=== PATIENT | female | born 1980 | race African-American/Black ===

== ENCOUNTER 2018-09-04 11:44 | Emergency (ER) | payer OTHER ==
[2018-09-04 11:53] VITALS: BP 136/80
[2018-09-04] MEDS ORDERED: Al Hydrox/Mg Hydrox/Simet LIQ* 30 ML UDC PO ONE (14:01)
[2018-09-04] MEDS ORDERED: Lidocaine 2% VISCOUS* 15 ML UDC PO ONE (14:01)
--- NOTE | 2018-09-04 16:39 | ED ---
Complex/Multi-Sys Presentation - HPI Summary HPI Summary: Patient is a 38-year-old female who presents emergency department with numerous complaints. Patient's main complaint is a feeling of a foreign body in her throat 2 weeks. Patient does not believe she has a food bolus. She is able to swallow solids and liquids but feels discomfort. She also notes vomiting that started yesterday and diffuse abdominal pain. She denies past medical history. States she has acid reflux while but has not been treated since. Symptoms are moderate in severity. No current modifying factors. - History Of Current Complaint Chief Complaint: EDGeneral Time Seen by Provider: 09/04/18 13:34 Hx Obtained From: Patient - Allergies/Home Medications Allergies/Adverse Reactions: Allergies Allergy/AdvReac Type Severity Reaction Status Date / Time No Known Allergies Allergy Verified 09/04/18 11:53 PMH/Surg Hx/FS Hx/Imm Hx Previously Healthy: Yes Endocrine/Hematology History: Denies: Hx Diabetes, Hx Thyroid Disease Cardiovascular History: Denies: Hx Hypertension Respiratory History: Denies: Hx Asthma, Hx Chronic Obstructive Pulmonary Disease (COPD) GI History: Denies: Hx Ulcer - Surgical History Surgery Procedure, Year, and Place: 2008. Infectious Disease History: No Infectious Disease History: Denies: Hx Hepatitis, Hx Human Immunodeficiency Virus (HIV), Traveled Outside the [place] in Last 30 Days - Family History Known Family History: Positive: Non-Contributory - Social History Occupation: Unemployed Lives: With Family Alcohol Use: Rare Substance Use Type: Reports: None Smoking Status (MU): Never Smoked Tobacco Review of Systems Constitutional: Negative Negative: Fever, Chills ENT: Negative Positive: Other - foreign body sensation in esophagus Cardiovascular: Negative Respiratory: Negative Positive: Abdominal Pain, Vomiting, Nausea. Negative: Diarrhea Genitourinary: Negative Neurological: Negative All Other Systems Reviewed And Are Negative: Yes Physical Exam Triage Information Reviewed: Yes Vital Signs On Initial Exam: Initial Vitals Temp Pulse Resp BP Pulse Ox 98.5 F 92 20 136/80 99 09/04/18 11:48 09/04/18 11:48 09/04/18 11:48 09/04/18 11:48 09/04/18 11:48 Vital Signs Reviewed: Yes Appearance: Positive: Well-Appearing - Patient sitting on bed in no acute distress. present. Skin: Positive: Warm, Dry Head/Face: Positive: Normal Head/Face Inspection Eyes: Positive: Normal, EOMI, Conjunctiva Clear Neck: Positive: Supple Respiratory/Lung Sounds: Positive: Clear to Auscultation, Breath Sounds Present Cardiovascular: Positive: Normal, RRR Abdomen Description: Positive: Other: - Marked tenderness in all quadrants. No rebound tenderness or guarding Musculoskeletal: Positive: Normal, Strength/ROM Intact Neurological: Positive: Normal, CN Intact II-III Psychiatric: Positive: Affect/Mood Appropriate Diagnostics - Vital Signs Vital Signs Temp Pulse Resp BP Pulse Ox 09/04/18 11:48 98.5 F 92 20 136/80 99 - Laboratory Lab Statement: Any lab studies that have been ordered have been reviewed, and results considered in the medical decision making process. Complex Multi-Symp Course/Dx Course Of Treatment: Patient presenting with complaints of foreign body sensation to her esophagus 2 weeks as well as abdominal pain and vomiting. Suspect her symptoms are possibly secondary to acid reflux. On exam she has marked abd. tenderness. Discussed with patient obtaining bloodwork and further examination. Patient's states they always have a hard time getting her blood and refuses lab work at this time. 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 Patient given a GI cocktail. Patient eloped from the ER before reevaluation and further evaluation. I had previously recommended the patient will ultimately need to see her family doctor for further workup of dysphagia. - Diagnoses Provider Diagnoses: Dysphagia, Vomiting, Abdominal pain Discharge - Sign-Out/Discharge Documenting (check all that apply): Patient Departure - Discharge Plan Condition: Good Disposition: ELOPEMENT Referrals: Lenny Falcon MD [Primary Care Provider] - - Billing Disposition and Condition Condition: GOOD Disposition: Elopement
== END 2018-09-04 14:25 | disposition home or self-care (01) ==
LOC: ED 11:44
DX: R13.10 Dysphagia, unspecified (principal); R11.2 Nausea with vomiting, unspecified; R10.9 Unspecified abdominal pain
CPT/HCPCS: 99282; A9270-GY

== ENCOUNTER 2019-09-11 19:09 | Emergency (ER) | payer OTHER ==
--- OUTSIDE RECORDS SUMMARY | 2019-09-11 19:14 | XMS REPORT | Continuity of Care Document ---
:1980 External Reference #:[id number] Author Name Alcides Edward, OD Address [address] [place] [address] Problems Description No Information Available Social History Type Date Description Comments Sex Unknown ETOH Use Occasionally consumes alcohol Tobacco Use Start: Unknown Patient has never smoked Smoking Status Reviewed: 07/16/19 Patient has never smoked Allergies, Adverse Reactions, Alerts Description No Known Drug Allergies Medications Description No Active Medications Immunizations Description No Information Available Vital Signs Date Vital Result Comment 07/16/2019 11:08am Intraocular Pressure Right Eye 18 mmHg Intraocular Pressure Left Eye 20 mmHg Results Description No Information Available Procedures Date Code Description Status 07/16/2019 49936 Oct Retina Completed 07/16/2019 19600 Refraction Completed 07/16/2019 47781 Eye Exam New Comprehensive Completed Medical Devices Description No Information Available Encounters Description No Information Available Assessments Date Code Description Provider 07/16/2019 H52.4 Presbyopia Alcides Edward, OD 07/16/2019 H35.372 Puckering of macula, left eye Alcides Edward, CHIDI Plan of Treatment 07/16/2019 - Alcides Edward, ODH52.4 PresbyopiaFollow up:yearly full, sooner PRNH35.372 Puckering of macula, left eyeFollow up:yearly full, sooner PRN Functional Status Description No Information Available Mental Status Description No Information Available Referrals Description No Information Available
[2019-09-11 19:43] VITALS: BP 127/80
[2019-09-11] MEDS ORDERED: Acetaminophen TAB* 325 MG PO ONE (19:46)
[2019-09-11 20:00] LABS: Influenza B Molecular POSITIVE (Negative)
[2019-09-11] MEDS ORDERED: Oseltamivir CAP* 75 MG CAP PO ONE ×2 (20:32)
--- NOTE | 2019-09-11 20:38 | UC ---
Respiratory Complaint HPI - HPI Summary HPI Summary: The patient is a 39-year-old female with the onset yesterday of fever chills or myalgias and cough. She denies any nausea vomiting or diarrhea. She denies any chest pain or shortness of breath. - History of Current Complaint Chief Complaint: UCGeneralIllness Stated Complaint: CHILLS Time Seen by Provider: 09/11/19 20:28 Hx Obtained From: Patient Hx Last Menstrual Period: <1 week ago Onset/Duration: Gradual Onset, Lasting Hours Timing: Constant Severity Initially: Mild Severity Currently: Severe Pain Intensity: 9 Pain Scale Used: 0-10 Numeric Character: Cough: Nonproductive Aggravating Factors: Nothing Alleviating Factors: Nothing Associated Signs And Symptoms: Positive: Fever, Nasal Congestion, Sinus Discomfort - Allergies/Home Medications Allergies/Adverse Reactions: Allergies Allergy/AdvReac Type Severity Reaction Status Date / Time No Known Allergies Allergy Verified 09/11/19 19:43 PMH/Surg Hx/FS Hx/Imm Hx Previously Healthy: Yes - Surgical History Surgical History: Yes Surgery Procedure, Year, and Place: 2008. - Family History Known Family History: Positive: Non-Contributory - Social History Alcohol Use: Occasionally Substance Use Type: None Smoking Status (MU): Never Smoked Tobacco - Immunization History Most Recent Influenza Vaccination: 05/28/14 Most Recent Tetanus Shot: unknown Most Recent Pneumonia Vaccination: none Review of Systems All Other Systems Reviewed And Are Negative: Yes Constitutional: Positive: Fever, Chills, Fatigue Skin: Positive: Negative Eyes: Positive: Negative ENT: Positive: Nasal Discharge, Sinus Congestion, Sinus Pain/Tenderness Respiratory: Positive: Cough Cardiovascular: Positive: Negative Gastrointestinal: Positive: Negative Genitourinary: Positive: Negative Motor: Positive: Negative Neurovascular: Positive: Negative Musculoskeletal: Positive: Myalgia Neurological: Positive: Headache Physical Exam Triage Information Reviewed: Yes Appearance: Ill-Appearing Vital Signs: Initial Vital Signs Temp 102.4 F 09/11/19 19:36 Pulse 87 09/11/19 19:36 Resp 20 09/11/19 19:36 BP 127/80 09/11/19 19:36 Pulse Ox 98 09/11/19 19:36 Vital Signs Reviewed: Yes Eyes: Positive: Conjunctiva Clear ENT: Positive: Hearing grossly normal, Nasal congestion, Nasal drainage, TMs normal Neck: Positive: Supple, Nontender, No Lymphadenopathy Respiratory: Positive: Lungs clear, Normal breath sounds, No respiratory distress, No accessory muscle use Cardiovascular: Positive: RRR, No Murmur Musculoskeletal: Positive: ROM Intact, No Edema Neurological: Positive: Alert Psychological Exam: Normal Skin Exam: Normal Diagnostics - Laboratory Lab Results: influenza B (+) Respiratory Course/Dx - Differential Dx/Diagnosis Provider Diagnosis: Influenza B Discharge ED - Sign-Out/Discharge Documenting (check all that apply): Patient Departure All imaging exams completed and their final reports reviewed: No Studies - Discharge Plan Condition: Stable Disposition: HOME Prescriptions: Oseltamivir CAP* [Tamiflu CAP*] 75 mg PO BID #8 cap Patient Education Materials: Influenza (ED) Forms: *Work Release Referrals: Lenny Falcon MD [Primary Care Provider] - 6 Days (if not better) Additional Instructions: rest fluids tylenol or advil if needed - Billing Disposition and Condition Condition: STABLE Disposition: Home
== END 2019-09-11 20:45 | disposition home or self-care (01) ==
LOC: UCEAST 19:09
DX: J10.1 Influenza due to other identified influenza virus with other respiratory manifestations (principal)
CPT/HCPCS: 99212; A9270-GY; G0463